=== PATIENT | female | born 1930 | race Caucasian/White ===

== ENCOUNTER → 2016-05-10 | Outpatient (CLI) | payer MEDICARE, OTHER ==
[~2016-05-10] MED LIST: ASA325 MG PO; LOTENSIN DPS20 MG PO; LOVENOX DP40 MG/0.4 SQ; MAALOX DPS30 ML PO; NORVASC5 MG PO; SURFAK240 MG PO; TYLENOL EXTRA500 M1 PO; ULTRAM DPS50 MG PO; VITAMIN D31000 UNIT PO
== END | disposition home or self-care (01) ==
LOC: RAD.S 08:50
DX: Z12.31 Encounter for screening mammogram for malignant neoplasm of breast (principal)